=== PATIENT | female | born 1955 | race Caucasian/White ===

== ENCOUNTER 2016-12-12 02:11 | Inpatient (IN) | payer OTHER ==
[~2016-12-12] VITALS: Ht 180.3 cm; Wt 63.5 kg
--- NOTE | 2016-12-12 14:02 | Admission Core Measures ---
Admission Meds I reviewed the following Meds: Current Medications Sig/Larisa Start time Last Medication Dose Stop Time Status Admin Cefazolin Sodium 2,000 MG ONCE 12/12 0000 NR (Kefzol-Ancef Inj) 12/12 4209 Acute Coronary Syndrome Inclusion Criteria ACS Diagnosis No Inpatient Core Measures LDL Reminder: If No, please order W/I first 24hr of stay Congestive Heart Failure Inclusion Criteria CHF Diagnosis No Cerebrovascular accident Inclusion Criteria CVA/TIA Diagnosis No Inpatient Core Measures Bedside Swallow Eval Reminder: If BSE failed, place ST order Antithrombotic Reminder: Order Antithrombotic Medication by end of day 2 Antithrombotic Reminder: Document Reason Antithrombotic Not ordered by end of day 2 AFIB/Flutter Reminder: If Present, add to problem list AFIB/Flutter Reminder: Order Anticoag Medication for pts with AFIB/Flutter Atherosclerosis Reminder: If Present, add to problem list LDL Reminder: If No, please order W/I first 24hr of stay PT Order Reminder: If No, please order Venous thromboembolism Inpatient Core Measures VTE Risk Factors: Age > 40, Surgery No Mech VTE prophylaxis d/t No contraindications No VTE Pharm Prophylaxis d/t No contraindications Inclusion Criteria - Per Current guidelines, there needs to be overlap - treatment for the first 5 days of Warfarin therapy. - Parenteral Anticoagulation (IV or SC) needs to be - given along with Warfarin therapy. VTE Diagnosis No VTE Type NONE VTE Confirmed by (Test) NONE Problem List As ranked by this Provider includes Assessment & Plan 1. Breast cancer 2. S/P mastectomy
--- NOTE | 2016-12-12 14:34 | NUCLEAR MEDICINE REPORT ---
EXAMINATION: LYMPHOSCINTIGRAPHY CLINICAL INFORMATION: Left breast DCIS. COMPARISON: None. TECHNIQUE: A total of 0.9 mCi technetium 99m Lymphoseek was injected in divided doses around the left areola by Dr. Allen. Images of the left breast and axilla in the anterior, CHILEAN, and left lateral projections were obtained with simultaneous visualization of the body silhouette using a cobalt flood source, with the patient positioned between the flood source and the gamma camera. FINDINGS: A sentinal node is visualized in the left axilla. Several second echelon nodes are visualized in the left axilla. IMPRESSION: A sentinal node in the left axilla is well visualized.
--- NOTE | 2016-12-12 14:53 | Operative Report ---
Operative/Inv Procedure Report Surgery Date: 12/12/16 Name of Procedure: Left mastectomy and sentinel lymph node biopsy Pre-Operative Diagnosis: Left breast stage 0 cancer Post-Operative Diagnosis: Same Estimated Blood Loss: scant Surgeon/Formula Room Worker: OWEN CASTELLANOS MD Anesthesia: laryngeal mask airway Specimens: Left breast, suture quintero medial, sentinel lymph node 3 Operative/Procedure Note Note: Patient is brought to the operating room on 12/12/2016 and placed supine on the table. Anesthesia was demonstrated as well as 2 g of Ancef. The left breast was prepped and draped in a sterile fashion using ChloraPrep. 3 mL of methylene blue diluted with 2 mL of saline was injected in the retroareolar fashion. Incisions were planned to encompass the nipple areolar complex and the biopsy site. I Marcaine was administered. Incisions were made and skin flaps are created superiorly to the level of the clavicle, medially to the sternum, inferiorly to the superior border the rectus sheath, and laterally to the latissimus. The breast tissue was then removed from the pectoralis fascia. Stasis maintained. The breast was marked with a suture in the medial aspect. The axilla was then explored. There were 2 blue lymph nodes identified 1 of which was hot. These were marked as sentinel lymph nodes. An additional hot lymph node was identified and excised as well. There were no other hot, blue, or palpable lymph nodes in the axilla. Hemostasis was adequate. A #10 BRITTANIE drain was placed and brought out through the skin inferior to the incision. This was fastened to the skin using a nylon suture. Made using interrupted Vicryl sutures, skin was closed using a running Biosyn subcuticular stitch. Steri- Strips and sterile dressings were applied, and the patient transferred to the recovery room in satisfactory condition having tolerated the procedure well.
--- NOTE | 2016-12-12 16:34 | PN- General Surgery ---
Subjective Subjective: POST-OP NOTE: Reports nausea, but not interested in medication at this time for it. Just arrived to room from pacu. No dizziness. No shortness of breath. No chest pains. Hasn't been out of bed yet. Due to void later. She reports she has taken percocet without a problem in the past. Objective Vital Signs and I&Os pacu flowsheet reviewed (vss) Physical Exam: General - alert but sleepy. comfortable. no acute distress. Lungs - clear bilaterally. no w/r/r. Cardiac - s1s2. chest dressing c/d/i. wearing surgical bra. CHUY drain with scan serosang drainage. Abdomen - soft. nontender. Extremities - warm bilaterally. no c/c/e. calves soft and nontender b/l. Assessment/Plan Assessment/Plan This 61 year old female with hx left breast cancer is POD#0 s/p left mastectomy, sentinel lymph node biopsy, chuy drain x 1 advance diet as tolerated percocet / morphine prn pain zofran prn n/v oob/ambulation with assistance f/u am labs monitor CHUY drain overnight likely d/c home tomorrow will d/w Core Measures/Miscellaneous Venous Thromboembolism VTE Risk Factors: Age > 40, Cancer/chemo/oth therapy, Surgery VTE Contraindications: No Contraindications VTE Diagnosis: No VTE Type: NONE VTE Confirmed by (Test): NONE Beta Mala Is Beta Mala a Home Med? No Antibiotics Is Patient on Antibiotics? No
--- NOTE | 2016-12-12 16:43 | Patient Discharge Instructions ---
Discharge Instructions General Discharge Information You were seen/treated for: Left breast stage 0 cancer You had these procedures: Surgery Date: 12/12/16 Name of Procedure: Left mastectomy and sentinel lymph node biopsy Watch for these problems: fever>101.3, increased pain, nausea/vomiting, shortness of breath, change in BRITTANIE drainage Special Instructions: BRITTANIE drain care. Empty & record output daily. Diet Continue normal diet: Yes Recommended Diet: Regular Activity Full Activity/No Limits: No Activity Self Limited: Yes Pounds, do NOT lift more than: 10 Acute Coronary Syndrome Inclusion Criteria At DC or during hospital stay patient has or had the following: ACS DIAGNOSIS No Discharge Core Measures Meds if any: Prescribed or Continued at Discharge Meds if any: NOT Prescribed or Continued at Discharge Congestive Heart Failure Inclusion Criteria At DC or during hospital stay patient has or had the following: CHF DIAGNOSIS No Discharge Core Measures Meds if any: Prescribed or Continued at Discharge Meds if any: NOT Prescribed or Continued at Discharge Cerebrovascular accident Inclusion Criteria At DC or during hospital stay patient has or had the following: CVA/TIA Diagnosis No Discharge Core Measures Meds if any: Prescribed or Continued at Discharge Meds if any: NOT Prescribed or Continued at Discharge Venous thromboembolism Inclusion Criteria VTE Diagnosis No VTE Type NONE VTE Confirmed by (Test) NONE Discharge Core Measures - Per Current guidelines, there needs to be overlap - treatment for the first 5 days of Warfarin therapy. - If discharged on Warfarin prior to 5 days of - overlap therapy, the patient will need to be - assessed for post discharge needs including - *Post discharge parental anticoagulation - *Warfarin and/or parental anticoagulation education - *Follow up date to check INR post discharge At least 5 days overlap therapy as Inpatient No Meds if any: Prescribed or Continued at Discharge Note: Overlap Therapy is Warfarin and Anticoagulant Meds if any: NOT Prescribed or Continued at Discharge
[2016-12-12] MEDS ORDERED: PERCOCET 5-3251 EACH PO (16:44)
[2016-12-12] MEDS ORDERED: COLACE100 M1 PO (16:44)
[2016-12-12 18:44] VITALS: BP 164/92
[2016-12-12 22:23] VITALS: BP 130/70
[2016-12-13 06:43] VITALS: BP 141/63
--- NOTE | 2016-12-13 08:37 | Surgical Discharge Summary ---
Visit Information Visit Dates Admission Date: 12/12/16 Discharge Date: 12/13/16 History of Present Illness Chief Complaint: LEFT BREAST CANCER Medical History Blood Transfusion Hx: No Neurological: NONE EENT: NONE Cardiovascular: NONE Respiratory: NONE Gastrointestinal: NONE Hepatic: NONE Renal: NONE Musculoskeletal: NONE Psychiatric: NONE Endocrine: NONE Blood Disorders: NONE Cancer(s): breast cancer ASSISTANT SIGNAL MAINTAINER/Reproductive: NONE History of MRSA: No History of VRE: No History of CDIFF: No Isolation History: Standard Surgical History Pertinent Surgical History: masectomy Psychosocial History Where Do You Live? Home Who Do You Live With? Spouse Services at Home: None What is Your Primary Language? Iranian Review of Systems: neg Hospital Course Course Attending Physician: OWEN CASTELLANOS MD Primary Care Physician: BRII GARSIA MD Hospital Course: Patient was admitted after a left mastectomy and sentinel node bipsy on 12/12/16. She had post operative nausea and vomiting which resolved by the first post oeprative morning. Her pain was well controlled and she had no evidence of hematoma or bleeding. She was discharged home with BRITTANIE drain on POD 1. Allergies: Coded Allergies: aspirin (From Percodan) (NAUSEA / VOMITING 12/09/16) erythromycin base (YEAST INFECTION 12/09/16) oxycodone (From Percodan) (NAUSEA / VOMITING 12/09/16) Disposition Summary Disposition Principal Diagnosis: Left breast carcinoma in situ Additional Diagnosis: none Discharge Disposition: home or self care Discharge Instructions General Discharge Information Code Status: Full Code Patient's Diet: as tolerated Patient's Activity: as tolerated Follow-Up Instructions/Appts: one week with Dr. Castellanos Medications at Discharge Discharge Medications: Start taking the following new medications: Oxycodone HCl/Acetaminophen (Percocet 5-325 MG Tablet) 5 MG-325 MG TABLET 1-2 Tablet ORAL EVERY 4-6 HOURS NEEDED as needed for pain control Qty = 36 No Refills Instructions: take as directed for pain control. do not combine with tylenol. Docusate Sodium (Colace) 100 MG CAPSULE 1 Capsule ORAL TWICE DAILY as needed for CONSTIPATION Days = 10 No Refills Instructions: stool softener available over the counter
[2016-12-13 08:38] LABS: ABSOLUTE BASOPHIL COUNT 0.1 /CUMM (0.0-0.2); ABSOLUTE EOSINOPHIL COUNT 0.1 /CUMM (0.0-0.7); ABSOLUTE GRANULOCYTE CT 11.3 /CUMM (1.4-6.5); ABSOLUTE LYMPH COUNT 2.4 /CUMM (1.2-3.4); ABSOLUTE MONOCYTE COUNT 1.1 /CUMM (0.10-0.60); BASOPHIL % 0.4 % (0.0-2.0); EOSINOPHIL % 0.5 % (0-5); MEAN CORPUSCULAR HGB 30.3 PG (27.0-31.0); MEAN CORPUSCULAR HGB CONC 33.3 G/DL (33.0-37.0); MEAN CORPUSCULAR VOLUME 90.8 FL (81.0-99.0); MEAN PLATELET VOLUME 7.7 FL (7.4-10.4); PLATELET COUNT 285 /CUMM (130-400); RBC DISTRIBUTION WIDTH 12.9 % (11.5-14.5); RED BLOOD CELL CT 4.07 /CUMM (4.20-5.40); WHITE BLOOD CELL COUNT 14.9 /CUMM (4.8-10.8)
[2016-12-13] MEDS ORDERED: TYLENOL WITH C1 EACH PO (08:41)
== END 2016-12-13 10:13 | DRG 581 ==
LOC: ENRESERVDT → ENRESERVTM → ENPENDDIS 02:11 → SDA 02:11 → 2NB 16:15
PROVIDERS: Physician Assistant; ADMIT Surgery
PROC: 07B60ZX Excision of Left Axillary Lymphatic, Open Approach, Diagnostic (ICD-10-PCS; principal; 2016-12-12)
PROC: 0HBU0ZZ Excision of Left Breast, Open Approach (ICD-10-PCS; principal; 2016-12-12)
DX: D05.12 Intraductal carcinoma in situ of left breast (principal); J44.9 Chronic obstructive pulmonary disease, unspecified; F17.200 Nicotine dependence, unspecified, uncomplicated; R31.9 Hematuria, unspecified; I34.1 Nonrheumatic mitral (valve) prolapse; M85.80 Other specified disorders of bone density and structure, unspecified site
CPT/HCPCS: 36415; 82436; 88307; A9520; J0131; J0690; J1644; J2405